=== PATIENT | male | born 1980 | race Caucasian/White ===

== ENCOUNTER 2019-10-27 04:30 | Emergency (ER) | payer MEDICAID ==
[~2019-10-27] VITALS: Ht 172.7 cm; Wt 74.8 kg
[2019-10-27] MEDS ORDERED: NITROGLYCERIN OINT 1 GM PACKET TP ONE ×2 (04:45→05:06)
[2019-10-27] MEDS ORDERED: ASPIRIN 81 MG TAB.CHEW PO ONE (04:45)
--- NOTE | 2019-10-27 04:46 | NUR ---
seen by dr elizabeth ,
--- NOTE | 2019-10-27 04:46 | NUR ---
patient has generalized swelling , lesion on bilateral arms , awake oriented , able to follow command , S R on RA
[2019-10-27] MEDS ORDERED: ASPIRIN 81 MG TAB.CHEW ONE (05:06)
[2019-10-27 05:23] LABS: BASOPHILS # (AUTO) 0.1 K/uL (0.0-8.0); BASOPHILS % (AUTO) 1.2 % (0.0-2.0); EOSINOPHILS # (AUTO) 0.2 K/uL (0.0-0.7); EOSINOPHILS % (AUTO) 2.3 % (0.0-7.0); HEMATOCRIT 27.6 % (36.7-47.1); HEMOGLOBIN 8.9 g/dL (12.5-16.3); LYMPHOCYTES # (AUTO) 2.3 K/uL (20.0-40.0); LYMPHOCYTES % (AUTO) 23.1 % (20.5-51.5); MEAN CORPUSCULAR HEMOGLOBIN 25.6 uug (23.8-33.4); MEAN CORPUSCULAR HGB CONC 32 g/dL (32.5-36.3); MEAN CORPUSCULAR VOLUME 79.5 fL (73.0-96.2); MONOCYTES # (AUTO) 0.7 K/uL (2.0-10.0); MONOCYTES % (AUTO) 7.2 % (0.0-11.0); NEUTROPHILS # (AUTO) 6.5 K/uL (1.8-8.9); NEUTROPHILS % (AUTO) 66.2 % (38.5-71.5); PLATELET COUNT (AUTO) 542 K/uL (152-348); RED BLOOD CELL COUNT(AUTO) 3.47 MIL/uL (4.06-5.63); WHITE BLOOD COUNT (AUTO) 9.8 K/uL (3.6-10.2)
[2019-10-27 05:34] LABS: BILIRUBIN,DIRECT 0.1 mg/dL (0.0-0.2); BILIRUBIN,TOTAL 0.3 mg/dL (0.2-1.0); CREATININE 0.9 mg/dL (0.6-1.3); TOTAL PROTEIN, SERUM 7.3 g/dL (6.4-8.2)
--- NOTE | 2019-10-27 06:07 | NUR ---
DR SCHAEFER IS AT BEDSIDE LAB AND X RAY RESULTS EXPLAINED
[2019-10-27 06:40] LABS: *BILIRUBIN,URIN NEGATIVE (NEGATIVE); *BLOOD, URINE NEGATIVE (NEGATIVE); *CLARITY,URINE SLIGHTLY CLOUDY (CLEAR); *COLOR,URINE YELLOW (YELLOW); *KETONES,URINE NEGATIVE (NEGATIVE); *UROBILINOGEN,URINE 0.2 E.U./dl (NORMAL); LEUKOCYTE ESTERASE ,URINE NEGATIVE (NEGATIVE); NITRITE, URINE NEGATIVE (NEGATIVE); PH,URINE 5.5 (5.0-8.0); UGLUCOSE NEGATIVE (NEGATIVE)
--- NOTE | 2019-10-27 07:08 | NUR ---
Pt is resting in bed comfortably. No s/s of acute distress at this time. Dr Gongora evaluated the pt.
[2019-10-27 09:02] LABS: RBC,URINE 0-3 /HPF (0-3)
--- NOTE | 2019-10-27 09:41 | NUR ---
PT WAS D/C'd TO HOME. AFTER DR STOREY RE-EVALUATION. D/C INSTRUCTIONS GIVEN TO THE PT BY DR STOREY.
[2019-10-27 09:42] VITALS: BP 121/77
== END 2019-10-27 09:43 | disposition home or self-care (01) ==
LOC: ER 04:42
DX: R60.0 Localized edema (principal); F11.20 Opioid dependence, uncomplicated; F15.20 Other stimulant dependence, uncomplicated; D64.9 Anemia, unspecified; R07.2 Precordial pain; E88.09 Other disorders of plasma-protein metabolism, not elsewhere classified; F17.200 Nicotine dependence, unspecified, uncomplicated
CPT/HCPCS: 36415; 70030-TC; 71045; 85025; 85730; 93005; A4663

== ENCOUNTER 2020-06-29 00:33 | Emergency (ER) | payer MEDICAID ==
[~2020-06-29] VITALS: Ht 175.3 cm; Wt 74.8 kg
--- NOTE | 2020-06-29 00:48 | NUR ---
Came in to ER ambulatory c/o R leg pain and swelling x3-4 days. To room 2A.
--- NOTE | 2020-06-29 01:03 | NUR ---
Seen and evaluated by Dr. Leon.
[2020-06-29] MEDS ORDERED: VANCOMYCIN IV 1,000 MG in IV DEXTROSE 5% 250 ML IV ONE (01:15)
[2020-06-29] MEDS ORDERED: IV NORMAL SALINE 500 ML BAG IV ONE (01:15)
[2020-06-29] MEDS ORDERED: VANCOMYCIN IV 200 ML ONE (01:24)
--- NOTE | 2020-06-29 01:34 | NUR ---
IV inserted to [facility] after several attempts. Dr. Leon aware. Addendum: 06/29/20 at 0154 by YADIRA IV to BETINA
[2020-06-29] MEDS ORDERED: HYDROMORPHONE 1 MG/1 ML DISP.SYRIN ONE (01:43)
[2020-06-29] MEDS ORDERED: ONDANSETRON 4 MG/2 ML VIAL ONE (01:43)
[2020-06-29] MEDS ORDERED: ONDANSETRON 4 MG/2 ML VIAL IV ONE (01:45)
[2020-06-29] MEDS ORDERED: HYDROMORPHONE 1 MG/1 ML DISP.SYRIN IV ONE (01:45)
--- NOTE | 2020-06-29 03:20 | NUR ---
IVs completed including Vancomycin IVPB. As per Dr. Leon do not discontinue saline lock when patient is DC due to patient has no veins. Patient instructed and informed that he has to come back in 12 hours for another dose of Vancomycin IV. Also strongly advised not to use IV access for any drugs. Patient verbalized understanding.
--- NOTE | 2020-06-29 03:30 | NUR ---
Patient discharged to home in stable condition. Written and verbal after care instructions given. Patient verbalizes understanding of instructions. Stressed follow up or return to ER for worsening s/s.
[2020-06-29 03:37] VITALS: BP 120/78
== END 2020-06-29 03:30 | disposition home or self-care (01) ==
LOC: ER 00:34
DX: L03.115 Cellulitis of right lower limb (principal); S80.811A Abrasion, right lower leg, initial encounter; X58.XXXA Exposure to other specified factors, initial encounter; Y92.89 Other specified places as the place of occurrence of the external cause; F17.210 Nicotine dependence, cigarettes, uncomplicated
CPT/HCPCS: 96365; 96366; 99284; J1170; J2405; J3370; A4663; J7040; J7050; J7060

== ENCOUNTER 2020-07-07 03:43 | Emergency (ER) | payer MEDICAID ==
[~2020-07-07] VITALS: Ht 175.3 cm; Wt 74.8 kg
--- NOTE | 2020-07-07 03:55 | NUR ---
Pt ambulated to ER with c/o right lower extremity cellulitis and pt wants to continue vancomycin. A/O x4, no SOB or labored breathing. Afebrile.
--- NOTE | 2020-07-07 03:58 | NUR ---
Dr. Macdonald at bedside, MSE in progress.
--- NOTE | 2020-07-07 05:16 | NUR ---
Ultrasound, Vitaly, at bedside.
--- NOTE | 2020-07-07 06:00 | NUR ---
Patient discharged to home in stable condition. No SOB or labored breathing. Afebrile. No changes in LOC. Ambulatory, steady gait. No c/o pain or discomfort. Written and verbal after care instructions given. Patient verbalizes understanding of instructions. Stressed follow up or return to ER for worsening s/s.
[2020-07-07 06:03] VITALS: BP 120/77
== END 2020-07-07 06:03 | disposition home or self-care (01) ==
LOC: ER 03:44
DX: Z13.9 Encounter for screening, unspecified (principal); M79.604 Pain in right leg; R60.0 Localized edema; F17.210 Nicotine dependence, cigarettes, uncomplicated
CPT/HCPCS: 76881; A4663

== ENCOUNTER 2020-07-27 07:05 | Inpatient (IN) | payer MEDICAID ==
[~2020-07-27] VITALS: Ht 172.7 cm; Wt 74.8 kg
--- NOTE | 2020-07-27 07:29 | NUR ---
at bedside for assessment
[2020-07-27] MEDS ORDERED: VANCOMYCIN 1G/D5W 200 ML PIGGYBACK IV ONE (07:45)
[2020-07-27] MEDS ORDERED: KETOROLAC TROMETHAMINE 30 MG INJ IVP ONE (07:45)
[2020-07-27] MEDS ORDERED: KETOROLAC TROMETHAMINE 30 MG INJ ONE (07:49)
[2020-07-27 07:58] LABS: HEMATOCRIT 31.5 % (36.7-47.1); MEAN CORPUSCULAR HEMOGLOBIN 25.8 uug (23.8-33.4); PLATELET COUNT (AUTO) 322 K/uL (152-348)
--- NOTE | 2020-07-27 08:00 | NUR ---
patient noted with right foot and ankle redness and swelling
[2020-07-27 08:04] LABS: POTASSIUM 3.6 mmol/L (3.5-5.1)
[2020-07-27 08:12] LABS: BILIRUBIN,TOTAL 0.3 mg/dL (0.2-1.0); TOTAL PROTEIN, SERUM 7.6 g/dL (6.4-8.2)
--- NOTE | 2020-07-27 09:05 | NUR ---
contract technical writer noted at bedside for swelling of right lower leg
[2020-07-27] MEDS ORDERED: TDAP DIPH,PERTUSS,TET VAC/PF 0.5 ML DISP.SYRIN IM ONE ×2 (10:15)
[2020-07-27] MEDS ORDERED: ONDANSETRON 4 MG/2 ML VIAL IV PRN (10:15)
[2020-07-27] MEDS ORDERED: TEMAZEPAM 15 MG CAPSULE PO PRN (10:15)
[2020-07-27] MEDS ORDERED: ACETAMINOPHEN 325 MG TABLET PO PRN (10:15)
[2020-07-27] MEDS ORDERED: HYDROCODONE/APAP 5-325MG TABLET PO PRN (10:15)
--- NOTE | 2020-07-27 10:25 | NUR ---
Report given to Jovon Royal
--- NOTE | 2020-07-27 11:48 | NUR ---
Patient transferred to [facility] ( [facility] [place]) for cellulitis of the left lower extremity, MD Patterson was the accepting md
--- NOTE | 2020-07-27 12:00 | NUR ---
received patient from ER at this time. patient transferred to bed, awake and alert. no complains of any pain, SOB, discomfort at this time. belonging checked by wool presser at this time. call light within reach. will continue to monitor.
[2020-07-27 12:29] VITALS: BP 119/74
[2020-07-27] MEDS ORDERED: PIPERACILLIN SODIUM/TAZOBACTAM 3.375 G in IV DEXTROSE 5% 50 ML IV SCH (14:00)
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
[2020-07-27] MEDS ORDERED: VANCOMYCIN IV 1,250 MG in IV DEXTROSE 5% 250 ML IV SCH (20:00)
[2020-07-27] MEDS ORDERED: DOCUSATE SODIUM 250 MG CAPSULE PO SCH (21:00)
[2020-07-27] MEDS ORDERED: DOCUSATE SODIUM 100 MG CAPSULE PO SCH (21:00)
[2020-07-28] MEDS ORDERED: PANTOPRAZOLE SODIUM 40 MG TABLET.DR PO SCH (07:00)
== END 2020-07-27 14:30 | disposition left against medical advice (07) | DRG 383 ==
LOC: ER 07:06 → MEDSURG3 10:54
PROVIDERS: ADMIT Internal Medicine; ATTEND Internal Medicine
DX: L03.115 Cellulitis of right lower limb (principal); D63.8 Anemia in other chronic diseases classified elsewhere; Z20.822 Contact with and (suspected) exposure to COVID-19; Z91.19 Patient's noncompliance with other medical treatment and regimen; R73.9 Hyperglycemia, unspecified; F19.11 Other psychoactive substance abuse, in remission; Z87.891 Personal history of nicotine dependence
CPT/HCPCS: 36415; 73590; 73630; 85025; 90715; A4663; G0378; J1885; J2543; J3370; J7050; J7060